=== PATIENT | female | born 2000 | race Hispanic/Latino ===

== ENCOUNTER 2023-06-21 13:37 | Emergency (ER) | payer MEDICAID ==
[~2023-06-21] VITALS: Ht 149.9 cm; Wt 59.0 kg
[2023-06-21 14:17] VITALS: BP 120/63; PULSE 55; RESP 16; O2SAT 99
[2023-06-21] MEDS ORDERED: IBUPROFEN 400 MG TABLET PO ONE (14:30)
[2023-06-21] MEDS ORDERED: IBUP-2076 PO (15:34)
== END 2023-06-21 19:39 | disposition home or self-care (01) ==
LOC: EDH 13:37
DX: S83.91XA Sprain of unspecified site of right knee, initial encounter (principal); X50.1XXA Overexertion from prolonged static or awkward postures, initial encounter; Y93.89 Activity, other specified; Y92.89 Other specified places as the place of occurrence of the external cause; Y99.8 Other external cause status
CPT/HCPCS: 73562

== ENCOUNTER 2025-03-09 11:14 | Emergency (ER) | payer BC, MEDICAID ==
[~2025-03-09] VITALS: Ht 149.9 cm; Wt 59.4 kg
[~2025-03-09 11:14] MED LIST: IBUP-2076 PO
--- NOTE | 2025-03-09 11:38 | ERN ---
ED Note History of Present Illness Stated Complaint: EYE PROBLEM Chief Complaint: Eye Problems Time Seen by MD: 11:15 Time Seen by Midlevel: 11:20 Dictation: 24-year-old female with no past medical history coming in complaining of left eye tearing. Patient states she feels a foreign body in her eye. Patient states two days ago she was washing her face and thinks she either got makeup or an eyelash stuck. Denies any blurry vision, or vision changes. Allergies: Coded Allergies: No Known Allergies (Unverified Allergy, Unknown, 06/21/23) Home Meds Active Scripts Ibuprofen (Ibuprofen) 400 Mg Tablet, 400 MG PO TID, #30 TAB Prov:TAWNY PENG Federico MONTEIRO 06/21/23 Past Medical History Past Medical History: No Pertinent History Surgical History: None Review of System Dictation Constitutional: Negative for fever,chills, and weight loss Eyes: Negative for injury, pain,redness, and discharge ENT: Complaining of foreign body sensation to the left eye Cardiovascular: Negative for chest pain, palpitations, and edema Respiratory: Negative for shortness of breath, cough, and wheezing, Abdomen/GI: Negative for abdominal pain, nausea, vomiting, diarrhea, and constipation Back: Negative for injury and pain : Negative for injury, bleeding and discharge MS/Extremity: Negative for injury and deformity Skin: Negative for rash, and discoloration Neuro: Negative for headache, weakness, numbness, tingling, and seizure Psych: Negative for suicide ideation, homicidal ideation, and hallucinations Review of Systems: was completed Initial Vital Sign VS Vital Signs Date Time Temp Pulse Resp B/P (MAP) Pulse Ox O2 Delivery O2 Flow Rate FiO2 03/09/25 11:20 98.1 62 16 115/78 99 Room Air 0 Physical Exam Dictation General: awake, alert, NAD Head/Face: Normocephalic, atraumatic Eyes: PERRL, EOMI, vision at baseline ENT: oral cavity clear, TMs clear, no signs of infection, on eye exam there was a small black FB most likely form her makeup. I removed it with qtip. Neck: Trachea midline, supple, no nuchal rigidity Cardiovascular: RRR, normal S1/S2, No MRGs, no JVD Respiratory: CTAB, no respiratory distress, No rales or wheezes Abdomen: Soft, non-tender, non-distended, normal bowel sounds, no guarding or rebound. Skin: Warm, dry, normal turgor, no rash MS/Extremity: Pulses equal, no cyanosis, neurovascular intact, FROM Neuro: COAx4, GCS 15, strength 5/5, CN 2-12 intact, normal cerebellar exam, normal gait, Psych: Normal behavior, mood, and affect normal ED Course ED Course Orders Procedure Category Date Status Time Tetracaine Hcl PHA 03/09/25 Complete (Pontocaine 0.5% 12:00 *Nursing CPOE 03/09/25 Transmitted Communication: 11:21 Fluorescein Sodium PHA 03/09/25 In Process (Acpxq-S-Kjvvv At) 13:00 Fluorescein Sodium PHA 03/09/25 Complete (Hhrtg-U-Rbzgw At) 12:24 Current Medications Medications (Trade) Dose Ordered Sig/Boyd Route PRN Reason Start Time Stop Time Status Last Admin Dose Admin Fluorescein Sodium (Pxdqe-T-Efvvn At) 1 strip ONCE ONCE OP 03/09/25 13:00 03/09/25 13:01 Fluorescein Sodium (Ctbuy-Z-Zjjds At) 1 strip STK-MED ONCE .ROUTE 03/09/25 12:24 03/09/25 12:24 DC 03/09/25 12:26 Tetracaine HCl (Pontocaine 0.5% Ophth Soln) 2 DROP OP ONCE ONCE OP 03/09/25 12:00 03/09/25 12:01 DC 03/09/25 12:26 Vital Signs Date Time Temp Pulse Resp B/P (MAP) Pulse Ox O2 Delivery O2 Flow Rate FiO2 03/09/25 11:20 98.1 62 16 115/78 99 Room Air 0 Medical Decision Making MDM MDM: 24-year-old female with no past medical history coming in complaining of left eye tearing. Patient states she feels a foreign body in her eye. Patient states two days ago she was washing her face and thinks she either got makeup or an eyelash stuck. Denies any blurry vision, or vision changes. Small black foreign body mostly consistent with her mosquito noted on the upper lid. Was removed with a Q-tip. Patient states she feels better, does not feel anymore foreign body. Flushed eye with normal saline. Discussed with the patient also prescribe patient is antibiotics and follow up with PCP in 1-2 days. Patient verbalized understanding, answered all questions. Differential diagnosis: One body in the eye, corneal abrasion, corneal ulceration Rationale: Tests considered and ordered secondary to shared decision making include: Previous outside records reviewed: Old ER visits. Risk of complication and/or morbidity or mortality of patient management: None Medications-Per medication reconciliation Need for hospitalization: Patient does not meet criteria for hospitalization. Need for emergency major/minor surgery: No There are no social concerns with this patient. Prescription drug management Prescriptions will include symptomatic care Patient's prior external medical records from other ER visits were reviewed by me as indicated. Prior testing and results from previous visits were reviewed. Prior tests were taken into account with medical decision making and resource utilization, independent historian/historians were used to obtain complete medical history. I independently interpreted the test that were performed, results were reviewed by me and considered findings on radiology if ordered. Medical management and examination interpretation discussions were had by me with other qualified healthcare professionals as indicated for the patient's care. DX & DISP Disposition: Discharge Departure Impression: Primary Impression: Eye foreign body Condition: Stable Scripts Erythromycin Base (Erythromycin) 5 Mg/Gram (0.5 %) Oint...g. 1 APPL OP QID for 5 Days, #7 GM 0 Refills apply 1 cm ribbon into the lower conjunctival sac Prov: ALLY WEEMS NP 03/09/25 Additional Instructions: Take antibiotics as prescribed. Follow up with PCP in 1-2 days. Return to the hospital for worsening symptoms. Time of Disposition: 12:58 I have reviewed the case, and I agree with, Diagnosis and Plan ALLY WEEMS NP March 09, 2025 11:38
[2025-03-09] MEDS: FLUORESCEIN SODIUM 1 STRIP STRIP ONE (12:26)
[2025-03-09] MEDS: TETRACAINE HCL 0.5% 4 ML OPHTH SOLN OP ONE (12:26)
[2025-03-09] MEDS: FLUORESCEIN SODIUM 1 STRIP STRIP OP ONE (12:27)
[2025-03-09] MEDS ORDERED: ERYT1OIN7 OP (12:58)
[2025-03-09 13:35] VITALS: BP 110/76; PULSE 60; RESP 16; TEMP 98.1; O2SAT 99
== END 2025-03-09 13:37 | disposition home or self-care (01) ==
LOC: EDH 11:14
DX: T15.90XA Foreign body on external eye, part unspecified, unspecified eye, initial encounter (principal); Z79.1 Long term (current) use of non-steroidal anti-inflammatories (NSAID); W44.9XXA Unspecified foreign body entering into or through a natural orifice, initial encounter
CPT/HCPCS: 99283